=== PATIENT | female | born 1965 | race African-American/Black ===

== ENCOUNTER 2018-06-12 09:15 | Emergency (ER) | payer MEDICAID ==
[~2018-06-12] VITALS: Ht 149.9 cm; Wt 58.0 kg
[2018-06-12 11:07] VITALS: BP 134/81
== END 2018-06-12 13:00 | disposition home or self-care (01) ==
LOC: ER 12:39
DX: J01.10 Acute frontal sinusitis, unspecified (principal); E78.00 Pure hypercholesterolemia, unspecified; J45.909 Unspecified asthma, uncomplicated; Z88.0 Allergy status to penicillin; Z98.890 Other specified postprocedural states
CPT/HCPCS: 99283

== ENCOUNTER 2023-08-22 16:55 | Emergency (ER) | payer MEDICAID ==
[~2023-08-22] VITALS: Ht 165.1 cm; Wt 60.0 kg
[2023-08-22 17:00] VITALS: TEMP 98.8; O2SAT 99
[2023-08-22] MEDS ORDERED: METHYLPREDNISOLONE SOD SUCC 40MG VIAL IV ONE (17:15)
[2023-08-22] MEDS: SODIUM CHLORIDE 0.9% 1,000 ML IV ONE (17:31)
[2023-08-22] MEDS: METHYLPREDNISOLONE SOD SUCC 40MG/ML (ACT-O-VIAL) IV NR (17:43)
[2023-08-22 17:46] LABS: BASOPHILS % 0.9 % (0.0-2.0); EOSINOPHILS % 5.3 % (0.0-5.0); HEMATOCRIT. 42.3 % (36.0-48.0); HEMOGLOBIN. 14.2 g/dL (12.0-16.0); LYMPHOCYTES % 42.4 % (20.0-50.0); MEAN CORPUSCULAR HEMOGLOBIN 31.7 pg (28.0-32.0); MEAN CORPUSCULAR HGB CONC 33.5 g/dL (31.0-37.0); MEAN CORPUSCULAR VOLUME 94.6 fL (81.0-99.0); MEAN PLATELET VOLUME 8.1 fl (7.4-10.4); MONOCYTES % 5.7 % (2.0-8.0); NEUTROPHILS % 45.7 % (40.0-76.0); PLATELET 386 x1000/uL (130-400); RED BLOOD CELL COUNT 4.47 mill/uL (4.2-5.4); RED CELL DISTRIBUTION WIDTH 14.8 % (11.6-14.6); WHITE BLOOD COUNT 12.4 x1000/uL (4.5-11.0)
[2023-08-22 18:08] LABS: ALANINE AMINOTRANSFERASE 10 IU/L (10-49); ALBUMIN 4.7 g/dL (3.2-4.8); ASPARTATE AMINOTRANSFERASE 17 IU/L (<34); BILIRUBIN TOTAL 0.6 mg/dL (0.1-1.0); CALCIUM 9.9 mg/dL (8.7-10.4); CARBON DIOXIDE 19 mEq/L (21-32); CHLORIDE 109 mEq/L (98-107); CREATININE 1.1 mg/dL (0.6-1.0); GLUCOSE 139 mg/dL (70-105); POTASSIUM 3.2 mEq/L (3.5-5.1); PROTEIN TOTAL 7.9 g/dL (6.0-8.3); SODIUM 139 mEq/L (136-145); UREA NITROGEN BLOOD 18 mg/dL (9-23)
[2023-08-22] MEDS: POTASSIUM CHLORIDE 20MEQ/PACKET PO ONE (19:14)
[2023-08-22] MEDS ORDERED: P50 MT (19:21)
[2023-08-22] MEDS ORDERED: DIPH25CA83 PO (19:21)
[2023-08-22 19:51] VITALS: BP 133/82; PULSE 68; RESP 14
== END 2023-08-22 19:30 | disposition home or self-care (01) ==
LOC: ER 16:55
DX: T78.40XA Allergy, unspecified, initial encounter (principal); Z88.0 Allergy status to penicillin; X58.XXXA Exposure to other specified factors, initial encounter
CPT/HCPCS: 99283; 96374; 96361; 80053; 85025; 36415; J2920; J7030

== ENCOUNTER 2023-08-25 13:34 | Emergency (ER) | payer MEDICAID ==
[~2023-08-25] VITALS: Ht 160 cm; Wt 66.0 kg
[~2023-08-25 13:34] MED LIST: DIPH25CA83 PO; P50 MT
[2023-08-25 13:48] VITALS: O2SAT 100
[2023-08-25] MEDS ORDERED: CETI10TA6 MT (14:23)
[2023-08-25] MEDS ORDERED: DIPH28.33 TP (14:23)
[2023-08-25 15:46] VITALS: BP 148/62; PULSE 78; RESP 18; TEMP 98.4
== END 2023-08-25 15:48 | disposition home or self-care (01) ==
LOC: ER 13:34
DX: L50.9 Urticaria, unspecified (principal); E78.00 Pure hypercholesterolemia, unspecified; J45.909 Unspecified asthma, uncomplicated; Z88.0 Allergy status to penicillin; Z98.890 Other specified postprocedural states
CPT/HCPCS: 99282

== ENCOUNTER 2023-09-23 16:52 | Emergency (ER) | payer MEDICAID, OTHER ==
[~2023-09-23] VITALS: Ht 149.9 cm; Wt 50.0 kg
[~2023-09-23 16:52] MED LIST changes: +CETI10TA6 MT; +DIPH28.33 TP
[2023-09-23 17:11] VITALS: O2SAT 100
[2023-09-23] MEDS ORDERED: DIPHENHYDRAMINE 50MG CAPSULE PO ONE (18:15)
[2023-09-23] MEDS ORDERED: B50 MT (18:31)
[2023-09-23] MEDS: DIPHENHYDRAMINE 25MG CAPSULE PO NR (18:36)
[2023-09-23 18:40] VITALS: BP 144/74; PULSE 87; RESP 18; TEMP 98.6
== END 2023-09-23 18:40 | disposition home or self-care (01) ==
LOC: ER 16:52
DX: L50.9 Urticaria, unspecified (principal); E78.00 Pure hypercholesterolemia, unspecified; Z88.0 Allergy status to penicillin; J45.909 Unspecified asthma, uncomplicated; Z98.890 Other specified postprocedural states
CPT/HCPCS: 99282; Q0163

== ENCOUNTER 2024-02-10 12:27 | Emergency (ER) | payer OTHER ==
[~2024-02-10] VITALS: Ht 149.9 cm; Wt 50.0 kg
[~2024-02-10 12:27] MED LIST changes: +B50 MT
[2024-02-10 12:39] VITALS: O2SAT 99
[2024-02-10 12:43] VITALS: BP 157/64; RESP 16; TEMP 98; O2SAT 100
[2024-02-10 12:44] VITALS: PULSE 94
[2024-02-10 13:27] LABS: BASOPHILS % 0.2 % (0.0-2.0); EOSINOPHILS % 0.1 % (0.0-5.0); HEMATOCRIT. 45.4 % (36.0-48.0); HEMOGLOBIN. 15.4 g/dL (12.0-16.0); LYMPHOCYTES % 9.1 % (20.0-50.0); MEAN CORPUSCULAR HEMOGLOBIN 31.4 pg (28.0-32.0); MEAN CORPUSCULAR HGB CONC 33.8 g/dL (31.0-37.0); MEAN CORPUSCULAR VOLUME 92.8 fL (81.0-99.0); MEAN PLATELET VOLUME 8.3 fl (7.4-10.4); MONOCYTES % 1.2 % (2.0-8.0); NEUTROPHILS % 89.4 % (40.0-76.0); PLATELET 329 x1000/uL (130-400); RED BLOOD CELL COUNT 4.89 mill/uL (4.2-5.4); RED CELL DISTRIBUTION WIDTH 14.1 % (11.6-14.6); WHITE BLOOD COUNT 7.8 x1000/uL (4.5-11.0)
[2024-02-10 13:32] LABS: CHLORIDE 107 mEq/L (98-107); POTASSIUM 4.5 mEq/L (3.5-5.1); SODIUM 139 mEq/L (136-145)
[2024-02-10 13:33] LABS: CALCIUM 11.1 mg/dL (8.7-10.4); CARBON DIOXIDE 26 mEq/L (21-32)
[2024-02-10 13:38] LABS: CREATININE 0.9 mg/dL (0.6-1.0); GLUCOSE 112 mg/dL (70-105); UREA NITROGEN BLOOD 15 mg/dL (9-23)
[2024-02-10 17:10] LABS: TROPONIN I HIGH SENSITIVITY < 4 ng/L (3.0-34)
== END 2024-02-10 21:41 | disposition home or self-care (01) ==
LOC: ER 12:27
DX: R09.81 Nasal congestion (principal); Z88.0 Allergy status to penicillin; F41.9 Anxiety disorder, unspecified; J45.909 Unspecified asthma, uncomplicated; F32.A Depression, unspecified; E78.00 Pure hypercholesterolemia, unspecified; Z98.890 Other specified postprocedural states; Z79.899 Other long term (current) drug therapy
CPT/HCPCS: 36415; 71045; 80048; 84484; 85025; 93005; 99285